=== PATIENT | male | born 1990 | race African-American/Black ===

== ENCOUNTER 2021-12-18 15:49 | Emergency (ER) | payer SELFPAY ==
[2021-12-18 16:01] VITALS: BP 138/58
--- NOTE | 2021-12-18 16:08 | ED EENT ---
History of Present Illness General Chief Complaint: Ear Problems Stated Complaint: LT EAR PAINFUL/UNABLE TO HEAR Nursing Triage Note: Patient reports he had tubes taken out of his ear 10 years ago, states he has had recurrent monthly pain in his left ear. He reports he began having pain in his left ear again this morning. Source: patient History of Present Illness Date Seen by Provider: Dec 18, 2021 Time Seen by Provider: 15:51 Initial Comments 31-year-old male presenting with complaints of left ear pain and decreased hearing. He reports that he has had recurrent symptoms like this about once a month for a while now. He has a history of ear infections and tubes in his ears when he was younger. The tube in the left ear did not fall out on its own and had to be removed when he was 18 or 19 years old. He denies any fever or chills with the symptoms currently. He has had no drainage from his ear. The pain is sharp and feels like there is a lot of pressure on his ear on the left side. He denies any direct trauma to the ear or left side of his head. He has not seen anyone about the symptoms over the last year or 2 when it has been happening because he states he does not have a primary provider. Timing/Duration: abrupt Severity: severe Location: ear (L) Prearrival Treatment: no prearrival treatment Associated Symptoms: change in hearing (decreased hearing from left ear); No cough, No drooling, No ear drainage, No facial pain/swelling, No fever, No malaise, No nasal congestion/drainage, No poor fluid intake, No poor solids intake, No sinus infection, No sore throat, No tooth pain, No voice change Allergies and Home Medications Allergies Coded Allergies: No Known Drug Allergies (Unverified , 12/18/21) Patient Home Medication List Home Medication List Reviewed: Yes Review of Systems Review of Systems Constitutional: No chills, No fever Eyes: No Symptoms Reported Ears: See HPI Nose: no symptoms reported Mouth: no symptoms reported Throat: no symptoms reported Respiratory: no symptoms reported Cardiovascular: no symptoms reported Gastrointestinal: no symptoms reported Musculoskeletal: no symptoms reported Skin: no symptoms reported Neurological: No Symptoms Reported Hematologic/Lymphatic: No Symptoms Reported Past Nasbyze-Yaemwi-Nefngp Hx Past Medical History Surgery/Hospitalization HX: Recurrent Otitis Media and Tympanostomy tubes as a child Physical Exam Vital Signs Vital Signs - First Documented 12/18/21 16:01 Temp 36.7 Pulse 92 Resp 16 B/P (MAP) 138/58 (84) Pulse Ox 98 O2 Delivery Room Air Height, Weight, BMI Height: '" Weight: lbs. oz. kg; BMI Method: General Appearance: WD/WN, no apparent distress Eyes: bilateral eye PERRL, bilateral eye EOMI Ears: right ear TM normal; bilateral ear auricle normal, bilateral ear foreign body (excess cerumen in bilateral canals. Left side impacted) Neck: non-tender, full range of motion, supple, normal inspection Neurologic/Psychiatric: alert, oriented x 3 Skin: normal color, warm/dry Procedures/Interventions Ear : Ear Location: Both (Both) Foreign Body Removal: Impacted Cerumen (left) Use of: Ear Curette, Irrigation Progress/Conclusion Patient verbally consented prior to attempting to flush his ears. The nursing staff irrigated his ear canals and had copious amounts of cerumen from both sides. From the left side he did have a large more solid chunk of cerumen that was removed. He had cerumen debris from the right side that was removed. Patient had improvement in his pain and hearing bilaterally. Counseled on follow-up and return precautions. Patient tolerated procedure well without any immediate complication. Progress/Results/Core Measures Results/Orders My Orders Orders - RUIZ CARRANZA MD Nursing Communication (Order) (12/18/21 16:04) Vital Signs/I&O 12/18/21 16:01 Temp 36.7 Pulse 92 Resp 16 B/P (MAP) 138/58 (84) Pulse Ox 98 O2 Delivery Room Air Blood Pressure Mean: 84 Progress Progress Note #1: Progress Note Counseled patient that is ears both have a lot of extra wax in them and the left side was impacted causing him to have the eardrum sealed off. This will increase his pressure against the eardrum as well as make it difficult to hear. Advised to try using ear softening wax drops at home. We will try to flush his ears to get some of the wax out here. Give the number for Dr. Larsen with ENT if he is still not having improvement in his symptoms he should check in with the ear nose and throat doctor. Progress Note #2: Progress Note Ears were flushed by the nursing staff and he did have large chunks of cerumen that were removed. The TMs were both slightly injected after the flushing but he did have improvement overall in his symptoms especially on the left side. Counseled on follow-up and return precautions. Given information about cerumen impaction and follow-up with Dr. Larsen if needed Departure Impression Primary Impression: Impacted cerumen of left ear Disposition: HOME, SELF-CARE Condition: Stable Departure-Patient Inst. Decision time for Depature: 16:06 Referrals: MATTHIEU LARSEN MD NO,LOCAL PHYSICIAN (PCP) Primary Care Physician [facility] [place] Patient Instructions: Ear Wax Impaction ED, How to Use Ear Drops Add. Discharge Instructions: Use ear drops over the counter such as Cerumenx or DeBrox or store brand to help loosen and dissolve the wax in the ear canal so it will flush out in the shower. If not improving then you may need to see ENT or clinic for further flushing All discharge instructions reviewed with patient and/or family. Voiced understanding. RUIZ CARRANZA MD Dec 18, 2021 16:08
== END 2021-12-18 16:10 | disposition home or self-care (01) ==
LOC: ER FS 15:51
DX: H61.22 Impacted cerumen, left ear (principal)
CPT/HCPCS: 99284